=== PATIENT | male | born 1980 | race Caucasian/White ===

== ENCOUNTER 2017-10-11 07:09 | Emergency (ER) | payer BC ==
[2017-10-11 07:21] VITALS: BP 152/85
--- NOTE | 2017-10-11 07:33 | UC ---
Throat Pain/Nasal Isaac HPI - HPI Summary HPI Summary: Onset of swelling in uvula at about 4 am, along with a dry mildly sore throat. No cough, fever, headache, urticaria. Not progressing, but unable to rest because if triggers a sensation of gagging. No infectious exposures. Able to swallow saliva and fluids. - History of Current Complaint Chief Complaint: UCGeneralIllness Stated Complaint: THROAT COMPLAINT Time Seen by Provider: 10/11/17 07:23 Hx Obtained From: Patient Onset/Duration: Gradual Onset, Lasting Hours Severity: Mild Pain Intensity: 1 Cough: None Associated Signs & Symptoms: Positive: Negative - Epiglottits Risk Factors Epiglottis Risk Factors: Worse w/Recumbent Position - Allergies/Home Medications Allergies/Adverse Reactions: Allergies Allergy/AdvReac Type Severity Reaction Status Date / Time Pollen, Dander Allergy Congestion Uncoded 10/29/14 16:46 PMH/Surg Hx/FS Hx/Imm Hx Previously Healthy: Yes - Surgical History Surgical History: None - Family History Known Family History: Positive: Diabetes - father with type 2 - Social History Occupation: Employed Full-time Lives: With Family - 5 children Alcohol Use: Rare Substance Use Type: None Smoking Status (MU): Never Smoked Tobacco - Immunization History Most Recent Influenza Vaccination: not this season Review of Systems Constitutional: Negative Skin: Negative Eyes: Negative ENT: Sore Throat Respiratory: Negative Cardiovascular: Negative Gastrointestinal: Negative Genitourinary: Negative Motor: Negative Neurovascular: Negative Musculoskeletal: Negative Neurological: Negative Psychological: Negative Is Patient Immunocompromised?: No All Other Systems Reviewed And Are Negative: Yes Physical Exam Triage Information Reviewed: Yes Appearance: Well-Appearing - No stridor, breathing comfortably., No Pain Distress Vital Signs: Initial Vital Signs Temp 97.9 F 10/11/17 07:15 Pulse 73 10/11/17 07:15 Resp 16 10/11/17 07:15 BP 152/85 10/11/17 07:15 Pulse Ox 99 10/11/17 07:15 Eyes: Positive: Conjunctiva Clear ENT: Positive: Pharyngeal erythema - uvular swelling and erythema, occupying approx 1/3 of oropharynx. Tonsils normal size, mild erythema., TMs normal, Uvula midline. Negative: Tonsillar swelling, Tonsillar exudate, Trismus, Muffled voice, Hoarse voice Respiratory: Positive: Lungs clear, Normal breath sounds Cardiovascular: Positive: RRR, No Murmur Musculoskeletal Exam: Normal Neurological Exam: Normal Psychological Exam: Normal Skin Exam: Normal - no rashes or urticaria. Throat Pain/Nasal Course/Dx - Course Course Of Treatment: offered steroids for treatment, declined by patient. Symptomatic treatment with gargling and ibuprofen, follow up as needed. - Differential Dx/Diagnosis Differential Diagnosis/HQI/PQRI: Laryngitis, Pharyngitis, Tonsillitis Provider Diagnoses: uvulitis, likely viral Discharge - Sign-Out/Discharge Documenting (check all that apply): Patient Departure - Discharge Plan Condition: Stable Disposition: HOME Patient Education Materials: Uvulitis (ED) Referrals: No Primary Care Phys,NOPCP [Primary Care Provider] - Additional Instructions: As discussed, warm water and salt gargling might help with swelling. Follow up if you develop fever or progressive symptoms. - Billing Disposition and Condition Condition: STABLE Disposition: Home
== END 2017-10-11 07:45 | disposition home or self-care (01) ==
LOC: UCCORT 07:09
DX: K12.2 Cellulitis and abscess of mouth (principal)
CPT/HCPCS: 99211; G0463